=== PATIENT | male | born 1995 | race Caucasian/White ===

== ENCOUNTER → 2019-03-08 | Outpatient (CLI) | payer OTHER ==
--- NOTE | 2019-03-08 13:41 | CT ---
EXAMINATION TYPE: CT sinus wo con DATE OF EXAM: 03/08/2019 COMPARISON: None HISTORY: Chronic sinusitis CT DLP: 628.7 mGycm. Automated Exposure Control for Dose Reduction was Utilized. TECHNIQUE: CT scan of the sinuses is performed without contrast, axial images are obtained, coronal r eformatted images are also reviewed. FINDINGS: The paranasal sinuses are remarkable for lobular soft tissue within the left maxillary sin us and patchy opacification, mucosal disease present at the ostiomeatal units bilaterally. Mucosal th ickening present in the right maxillary sinus, ethmoid air cells and frontal sinus on the left, there is an air-fluid level in the sphenoid sinus. Minimal deviation of the nasal septum. Shaylee bullosa n oted on the left. Visualized portion of mastoid air cells show no abnormal opacification. The globes are intact bilate rally. Incidental note made of probable arachnoid cyst posterior fossa posterior to the cerebellar h emispheres. IMPRESSION: The sinuses are remarkable for inflammatory changes as described, possible mucus retentio n cyst left maxillary sinus. Incidental arachnoid cyst suspected in the posterior fossa.
== END | disposition home or self-care (01) ==
LOC: RADCTMAIN 08:14
PROVIDERS: ATTEND Otolaryngology
DX: J32.9 Chronic sinusitis, unspecified (principal)
CPT/HCPCS: 70486

== ENCOUNTER → 2019-03-31 | Outpatient (CLI) | payer OTHER ==
--- NOTE | 2019-03-31 22:41 | MR ---
EXAMINATION TYPE: MR brain wo/w con DATE OF EXAM: 03/31/2019 COMPARISON: Sinus CT March 08, 2019 HISTORY: Abnormal CT/arachnoid cyst TECHNIQUE: Multiplanar, multisequence images of the brain and brainstem is performed without and with IV contras t, utilizing 7.5 mL intravenous Gadavist . FINDINGS: Diffusion weighted images demonstrate no evidence of a recent infarct or other diffusion ab normality. There is no significant white matter signal abnormality. The ventricular system and cist ernal spaces are normal in size and appearance. The brain volume is age appropriate. Corresponding t o CT involving posterior aspect posterior fossa there is CSF prominence extending inferiorly with foc al areas of linear signal likely reflecting dura. No suspicious enhancement is present. Local mass ef fect noted. No suspicious solid component or nodularity. Findings would correlate with yany cisterna magna or small adjacent arachnoid cysts. Area of concern measures 5.8 cm transversely by 3.7 cm crani ocaudal dimension coronal image 33 x 2.6 cm AP diameter axial image 11. No bony destruction or suspic ious erosive changes noted on corresponding CT. Midline structures demonstrate normal morphology. The craniocervical junction appears within normal limits. Post contrast images demonstrate no abnormal enhancement. The dural venous sinuses appear pa tent. Large mucous retention cyst or polyp inferior aspect left maxillary sinus redemonstrated. Mild mucosal thickening right maxillary sinus inferiorly and mild overall mucosal thickening left maxillar y sinus redemonstrated. Some patchy fluid signal and mucosal thickening bilateral ethmoid sinuses aga in seen. Mild mucosal thickening left frontal sinus redemonstrated. IMPRESSION: 1. Fairly stable acute on chronic paranasal sinus disease from recent CT. 2. Prominent CSF posterior aspect posterior fossa consistent with Yany cisterna magna or adjacent po sterior fossa arachnoid cysts with local mass effect.
== END | disposition home or self-care (01) ==
LOC: RADMRIMAIN 21:37
PROVIDERS: ATTEND Otolaryngology
DX: G93.0 Cerebral cysts (principal)
CPT/HCPCS: 70553; A9585

== ENCOUNTER 2024-03-26 11:23 | Emergency (ER) | payer BC ==
[2024-03-26 11:53] VITALS: RESP 16
--- NOTE | 2024-03-26 12:01 | ED ---
Abdominal Pain HPI - General Source: patient Mode of arrival: ambulatory Limitations: no limitations <Omar Rey - Last Filed: 03/26/24 12:01> - General Source: patient, RN notes reviewed Mode of arrival: ambulatory Limitations: no limitations - History of Present Illness MD Complaint: abdominal pain <Essence Goddard - Last Filed: 03/27/24 06:17> - General Chief Complaint: Abdominal Pain Stated Complaint: ABD pain Time Seen by Provider: 03/26/24 12:01 - History of Present Illness Initial Comments: Quick note: 29-year-old male presented the ER for evaluation of abdominal pain. Patient has a history of ulcerative colitis. He states since Sunday he has had abdominal discomfort along with nausea, diarrhea and on and off fevers. He states pain does not feel typical to ulcerative colitis flareup. (Omar Rey) This is a 29-year-old male who presents to the emergency department for abdominal pain. He has had intermittent abdominal pain for the last 3 days. Pain is in the right side of the mid to upper abdomen. He has occasional nausea with this as well. Reports a history of ulcerative colitis. He used to be on mesalamine, but did not find this effective and has not taken it for the last few months. He is on supplements which had been working. States that this does not necessarily feel typical of prior UC flareups. Most recent flareup was a couple of months ago when he had blood and mucus in his stools. (Essence Goddard) - Related Data Previous Rx's Medication Instructions Recorded Ondansetron Odt [Zofran Odt] 4 mg PO Q8HR PRN #20 tab 03/26/24 Allergies Allergy/AdvReac Type Severity Reaction Status Date / Time No Known Allergies Allergy Verified 03/26/24 11:53 Review of Systems ROS Other: All systems not noted in ROS Statement are negative. <Omar Rey - Last Filed: 03/26/24 12:01> ROS Other: All systems not noted in ROS Statement are negative. <Essence Goddard - Last Filed: 03/27/24 06:17> ROS Statement: Those systems with pertinent positive or pertinent negative responses have been documented in the HPI. Past Medical History Additional Past Medical History / Comment(s): colitis Past Surgical History: No Surgical Hx Reported Smoking Status: Never smoker Past Alcohol Use History: None Reported Past Drug Use History: None Reported <Omar Rey - Last Filed: 03/26/24 12:01> General Exam Limitations: no limitations <Omar Rey - Last Filed: 03/26/24 12:01> Limitations: no limitations General appearance: alert, in no apparent distress Head exam: Present: atraumatic, normocephalic, normal inspection Respiratory exam: Present: normal lung sounds bilaterally. Absent: respiratory distress, wheezes, rales, rhonchi, stridor Cardiovascular Exam: Present: regular rate, normal rhythm, normal heart sounds. Absent: systolic murmur, diastolic murmur, rubs, gallop, clicks GI/Abdominal exam: Present: soft, tenderness (Right mid to upper abdomen), normal bowel sounds. Absent: distended Neurological exam: Present: alert, oriented X3, CN II-XII intact Psychiatric exam: Present: normal affect, normal mood Skin exam: Present: warm, dry, intact, normal color. Absent: rash <Essence Goddard - Last Filed: 03/27/24 06:17> - General Exam Comments Initial Comments: Visual Physical Exam Vital signs reviewed General: Well-appearing, nontoxic, no acute distress. Head: Normocephalic, atraumatic Eyes: PERRLA, EOMI ENT: Airway patent Chest: Nonlabored breathing Skin: No visual rash, normal skin tone Neuro: Alert and oriented 3 Musculoskeletal: No gross abnormalities (Omar Rey) Course Vital Signs 03/26/24 03/26/24 11:49 16:07 Temperature 98.4 F 98.1 F Pulse Rate 79 78 Respiratory 16 16 Rate Blood Pressure 122/78 124/81 O2 Sat by Pulse 98 98 Oximetry Medical Decision Making <Omar Rey - Last Filed: 03/26/24 12:01> - Lab Data Result diagrams: 03/26/24 13:35 03/26/24 13:35 - Radiology Data Radiology results: report reviewed, image reviewed <Essence Goddard - Last Filed: 03/27/24 06:17> - Medical Decision Making I performed the quick note portion of this chart. Electronically signed by Omar Rey PA-C (Omar Rey) This is a 29-year-old male who presents to the emergency department for abdominal pain. Was pt. sent in by a medical professional or institution? @ -No Did you speak to anyone other than the patient for history? @ -No Did you review nursing and triage notes? @ -Yes, and I agree, it is accurate with regards to the patient's symptoms. Were old charts reviewed? @ -No Differential Diagnosis? @ -Differential Abdominal Pain Men: Appendicitis, cholecystitis, diverticulosis, ischemic bowel, pancreatitis, hepatitis, UTI, gastroenteritis, AAA, incarcerated hernia, bowel obstruction, constipation, inflammatory bowel, hepatitis, peptic ulcer disease, splenic infarction, perforated viscus, testicular torsion, this is not meant to be an all-inclusive list EKG interpreted by me (3pts min.)? @ -Not obtained X-rays interpreted by me (1pt min.)? @ -Not obtained CT interpreted by me (1pt min.)? @ -CT scan of the abdomen and pelvis obtained. My interpretation identifies no evidence of bowel wall thickening or free air. U/S interpreted by me (1pt. min.)? @ -Gallbladder ultrasound obtained. My interpretation identifies no evidence of cholelithiasis. What testing was considered but not performed? (CT, X-rays, U/S, labs)? Why? @ -None What meds were considered but not given? Why? @ -None Did you discuss the management of the patient with other professionals? @ -No Did you reconcile home meds? @ -No Was smoking cessation discussed for >3mins.? @ -No Was critical care preformed (if so, how long)? @ -No Were there social determinants of health that impacted care today? How? (Homelessness, low income, unemployed, alcoholism, drug addiction, transportation, low edu. Level, literacy, decrease access to med. care, longterm, rehab)? @ -No Was there de-escalation of care discussed even if they declined? (Discuss DNR or withdrawal of care, Hospice)? @ -No What co-morbidities impacted this encounter? (DM, HTN, Smoking, COPD, CAD, Cancer, CVA, Hep., AIDS, mental health diagnosis, sleep apnea, morbid obesity)? @ -Ulcerative colitis Was patient admitted / discharged? @ -Discharged. Lab work unremarkable. CT scan of the abdomen and pelvis obtained revealing no acute process. Given that the pain was more so in the right upper quadrant we did discuss further testing with a gallbladder ultrasound. Patient was in agreement and a gallbladder ultrasound was obtained. This also revealed no acute process. Advised that the cause of his symptoms is not entirely clear at this point. Advised he discuss a HIDA scan with his PCP or GI doctor to further evaluate his gallbladder function given the location of his pain. Zofran prescribed for any additional nausea. Patient discharged home in stable condition. Case discussed with ED attending Dr. Giang. Return precautions reviewed in depth, the patient is instructed to return to the emergency department with any new, worsening, or concerning symptoms. Patient verbalized understanding. Undiagnosed new problem with uncertain prognosis? @ -None Drug Therapy requiring intensive monitoring for toxicity (Heparin, Nitro, Insulin, Cardizem)? @ -None Were any procedures done? @ -None Diagnosis/symptom? @ -Abdominal pain, nausea and vomiting Acute, or Chronic, or Acute on Chronic? @ -Acute Uncomplicated (without systemic symptoms) or Complicated (systemic symptoms)? @ -Uncomplicated Side effects of treatment? @ -None Exacerbation, Progression, or Severe Exacerbation] @ -Not applicable Poses a threat to life or bodily function? @ -No (Essence Goddard) - Lab Data Lab Results 03/26/24 03/26/24 03/26/24 Range/Units 13:35 13:35 13:35 WBC 6.7 (3.8-10.6) k/uL RBC 5.69 (4.30-5.90) m/uL Hgb 16.1 (13.0-17.5) gm/dL Hct 49.6 (39.0-53.0) % MCV 87.1 (80.0-100.0) fL MCH 28.3 (25.0-35.0) pg MCHC 32.5 (31.0-37.0) g/dL RDW 12.3 (11.5-15.5) % Plt Count 174 (150-450) k/uL MPV 6.9 Neutrophils % 73 % Lymphocytes % 13 % Monocytes % 11 % Eosinophils % 1 % Basophils % 0 % Neutrophils # 4.9 (1.3-7.7) k/uL Lymphocytes # 0.9 L (1.0-4.8) k/uL Monocytes # 0.7 (0-1.0) k/uL Eosinophils # 0.1 (0-0.7) k/uL Basophils # 0.0 (0-0.2) k/uL Sodium 138 (137-145) mmol/L Potassium 4.2 (3.5-5.1) mmol/L Chloride 102 (98-107) mmol/L Carbon Dioxide 28 (22-30) mmol/L Anion Gap 8 mmol/L BUN 20 (9-20) mg/dL Creatinine 0.82 (0.66-1.25) mg/dL Est GFR (CKD-EPI)AfAm >90 (>60 ml/min/1.73 sqM) Est GFR (CKD-EPI)NonAf >90 (>60 ml/min/1.73 sqM) Glucose 97 (74-99) mg/dL Plasma Lactic Acid Sami 0.7 (0.7-2.0) mmol/L Calcium 9.5 (8.4-10.2) mg/dL Total Bilirubin 0.7 (0.2-1.3) mg/dL AST 33 (17-59) U/L ALT 22 (4-49) U/L Alkaline Phosphatase 76 (38-126) U/L Total Protein 7.5 (6.3-8.2) g/dL Albumin 4.9 (3.5-5.0) g/dL Amylase 84 (30-110) U/L Lipase 72 (23-300) U/L Urine Color Urine Appearance (Clear) Urine pH (5.0-8.0) Ur Specific [place]wood (1.001-1.035) Urine Protein (Negative) Urine Glucose (UA) (Negative) Urine Ketones (Negative) Urine Blood (Negative) Urine Nitrite (Negative) Urine Bilirubin (Negative) Urine Urobilinogen (<2.0) mg/dL Ur Leukocyte Esterase (Negative) Urine RBC (0-5) /hpf Urine WBC (0-5) /hpf Urine Mucus (None) /hpf 03/26/24 Range/Units 14:43 WBC (3.8-10.6) k/uL RBC (4.30-5.90) m/uL Hgb (13.0-17.5) gm/dL Hct (39.0-53.0) % MCV (80.0-100.0) fL MCH (25.0-35.0) pg MCHC (31.0-37.0) g/dL RDW (11.5-15.5) % Plt Count (150-450) k/uL MPV Neutrophils % % Lymphocytes % % Monocytes % % Eosinophils % % Basophils % % Neutrophils # (1.3-7.7) k/uL Lymphocytes # (1.0-4.8) k/uL Monocytes # (0-1.0) k/uL Eosinophils # (0-0.7) k/uL Basophils # (0-0.2) k/uL Sodium (137-145) mmol/L Potassium (3.5-5.1) mmol/L Chloride (98-107) mmol/L Carbon Dioxide (22-30) mmol/L Anion Gap mmol/L BUN (9-20) mg/dL Creatinine (0.66-1.25) mg/dL Est GFR (CKD-EPI)AfAm (>60 ml/min/1.73 sqM) Est GFR (CKD-EPI)NonAf (>60 ml/min/1.73 sqM) Glucose (74-99) mg/dL Plasma Lactic Acid Sami (0.7-2.0) mmol/L Calcium (8.4-10.2) mg/dL Total Bilirubin (0.2-1.3) mg/dL AST (17-59) U/L ALT (4-49) U/L Alkaline Phosphatase (38-126) U/L Total Protein (6.3-8.2) g/dL Albumin (3.5-5.0) g/dL Amylase (30-110) U/L Lipase (23-300) U/L Urine Color Yellow Urine Appearance Cloudy (Clear) Urine pH 7.5 (5.0-8.0) Ur Specific [place] 1.027 (1.001-1.035) Urine Protein Negative (Negative) Urine Glucose (UA) Negative (Negative) Urine Ketones Negative (Negative) Urine Blood Negative (Negative) Urine Nitrite Negative (Negative) Urine Bilirubin Negative (Negative) Urine Urobilinogen <2.0 (<2.0) mg/dL Ur Leukocyte Esterase Negative (Negative) Urine RBC <1 (0-5) /hpf Urine WBC <1 (0-5) /hpf Urine Mucus Rare H (None) /hpf Disposition <Omar Rey - Last Filed: 03/26/24 12:01> Is patient prescribed a controlled substance at d/c from ED?: No Time of Disposition: 14:55 <Essence Goddard - Last Filed: 03/27/24 06:17> Clinical Impression: Abdominal pain, Nausea and vomiting Disposition: HOME SELF-CARE Instructions (If sedation given, give patient instructions): Abdominal Pain (ED) Additional Instructions: Return to the emergency department with any new, worsening, or concerning symptoms. Try taking the Zofran up to every 8 hours as needed for nausea and vomiting. Discuss a HIDA scan with your regular doctor or expense clerk f or further evaluation of your gallbladder function. Prescriptions: Ondansetron Odt [Zofran Odt] 4 mg PO Q8HR PRN #20 tab PRN Reason: Nausea And Vomiting Referrals: Nonstaff,Physician [Primary Care Provider] - 1-2 days
[2024-03-26] MEDS ORDERED: ONDANSETRON 4 MG/2 ML VIAL IVP STA (13:07)
[2024-03-26] MEDS ORDERED: MORPHINE SULFATE 4 MG/ML SYRINGE IVP STA (13:07)
[2024-03-26 13:40] LABS: Basophils % (A) 0 %; Eosinophils # (A) 0.1 k/uL (0-0.7); Eosinophils % (A) 1 %; HCT 49.6 % (39.0-53.0); HGB 16.1 gm/dL (13.0-17.5); Lymphocytes # (A) 0.9 k/uL (1.0-4.8); Lymphocytes % (A) 13 %; MCH 28.3 pg (25.0-35.0); MCHC 32.5 g/dL (31.0-37.0); MCV 87.1 fL (80.0-100.0); Mean Platelet Volume 6.9; Monocytes # (A) 0.7 k/uL (0-1.0); Monocytes % (A) 11 %; Neutrophils # (A) 4.9 k/uL (1.3-7.7); Neutrophils % (A) 73 %; Platelet Count 174 k/uL (150-450); RBC 5.69 m/uL (4.30-5.90); RDW 12.3 % (11.5-15.5); WBC 6.7 k/uL (3.8-10.6)
[2024-03-26 13:54] LABS: ALT 22 U/L (4-49); AST 33 U/L (17-59); African American GFR (CKD) >90 (>60 ml/min/1.73 sqM); Albumin 4.9 g/dL (3.5-5.0); Alkaline Phosphatase 76 U/L (38-126); Amylase 84 U/L (30-110); Anion Gap 8 mmol/L; Blood Urea Nitrogen 20 mg/dL (9-20); Calcium 9.5 mg/dL (8.4-10.2); Carbon Dioxide 28 mmol/L (22-30); Chloride 102 mmol/L (98-107); Glucose 97 mg/dL (74-99); Lipase 72 U/L (23-300); Non-African American GFR(CKD) >90 (>60 ml/min/1.73 sqM); Potassium 4.2 mmol/L (3.5-5.1); Sodium 138 mmol/L (137-145); Total Bilirubin 0.7 mg/dL (0.2-1.3); Total Protein 7.5 g/dL (6.3-8.2)
[2024-03-26] MEDS: SODIUM CHLORIDE 0.9% 1,000 ML IV STA (14:20)
--- NOTE | 2024-03-26 14:31 | CT ---
EXAMINATION TYPE: CT abdomen pelvis w con DATE OF EXAM: 03/26/2024 COMPARISON: None CLINICAL INDICATION: Male, 29 years old with history of Right sided abdominal pain; PHH, lower abd pa in x4 days, h/o ulserative colitis TECHNIQUE: Performed without Oral Contrast and with IV Contrast, patient injected with 100 mL of Isovue 300. CT DLP: 811.[address] CTDI: mGy Automated exposure control for dose reduction was used. FINDINGS: The lung bases are clear. The gallbladder is normal without distention, wall thickening, pericholecystic fluid or gallstones. T here is no biliary ductal dilatation. There is no focal mass or organomegaly involving the liver, pancreas, spleen or adrenal glands. There is no solid renal mass or hydronephrosis and there is homogeneous contrast enhancement of the r enal parenchyma. The caliber the abdominal aorta is normal is no retroperitoneal adenopathy or hemorr farzad. The bowel loops are normal in caliber and there is no evidence of dilatation or obstruction. No infla mmatory changes are identified in the bowel wall or mesentery. There is no free intraperitoneal air or fluid. No pelvic mass, free fluid, abscess or adenopathy. The osseous structures and soft tissues are intact. IMPRESSION: No significant abnormality seen. [facility], , 03/26/2024 2:28 PM
--- NOTE | 2024-03-26 15:37 | US ---
EXAMINATION TYPE: US gallbladder DATE OF EXAM: 03/26/2024 COMPARISON: NONE CLINICAL INDICATION: Male, 29 years old with history of RUQ pain; waves of pain within RUQ, normal CT today TECHNIQUE: Grayscale and color Doppler imaging of the right upper quadrant was performed. FINDINGS: EXAM MEASUREMENTS: Liver Length: 15.9 cm Gallbladder Wall: 0.2 cm CBD: 0.4 cm Right Kidney: 11.8 x 4.8 x 4.6 cm Pancreas: wnl Liver: wnl Gallbladder: wnl Evidence for sonographic Warren's sign: no CBD: wnl Right Kidney: wnl IMPRESSION: No significant abnormality seen. [facility], , 03/26/2024 3:35 PM
[2024-03-26 16:09] VITALS: BP 124/81; PULSE 78; TEMP 98.1
[2024-03-26 16:35] LABS: Appearance,Urine Cloudy (Clear); Bilirubin,Urine Negative (Negative); Blood,Urine Negative (Negative); Color,Urine Yellow; Glucose,Urine (UA) Negative (Negative); Ketones,Urine Negative (Negative); Leukocyte Esterase,Urine Negative (Negative); Mucus,Urine Rare /hpf; Nitrite,Urine Negative (Negative); PH, Urine 7.5 (5.0-8.0); Protein,Urine Negative (Negative); RBC,Urine <1 /hpf (0-5); Specific Gravity,Urine 1.027 (1.001-1.035); Urobilinogen,Urine <2.0 mg/dL (<2.0); WBC,Urine <1 /hpf (0-5)
== END 2024-03-26 16:09 | disposition home or self-care (01) ==
LOC: EC 11:23
DX: R10.11 Right upper quadrant pain (principal); K51.90 Ulcerative colitis, unspecified, without complications
CPT/HCPCS: 36415; 80053; 82150; 83605; 83690; 85025; 81001; 76705; 74177; 99284; 96360; Q9967